=== PATIENT | female | born 1980 | race Caucasian/White ===

== ENCOUNTER → 2020-08-01 10:01 | Outpatient (CLI) | payer OTHER, SELFPAY ==
--- NOTE | ~2020-08-01 | MM_ITS ---
EXAMINATION: MM diagnostic sylvia BI w daniel HISTORY: Breast pain TECHNIQUE: Additional 3-D tomosynthesis images of the breasts were performed and synthetic 2-D images were generated. CAD analysis was submitted and interpreted. COMPARISON: Comparison to multiple prior studies sequentially, with oldest reviewed study dated 09/25. BREAST PARENCHYMAL COMPOSITION: The breasts are heterogenously dense, which may obscure small masses. FINDINGS: The breasts are stable. There are no suspicious masses, calcifications or architectural dis tortion in either breast to suggest malignancy. IMPRESSION: 1. No mammographic evidence for malignancy in either breast. 2. Routine yearly screening mammogram and regular clinical breast examination are recommended. BI-RADS Category 1: Negative Reviewed, dictated and finalized at location A. IMPRESSION: 1. No mammographic evidence for malignancy in either breast. 2. Routine yearly screening mammogram and regular clinical breast examination a re recommended. BI-RADS Category 1: Negative
== END ==
PROVIDERS: PCP Physician Assistant; Visit Provider Nurse Practitioner
DX: N64.4 Mastodynia (principal)
CPT/HCPCS: 77062; 77066; G0279

== ENCOUNTER → 2021-07-26 16:13 | Outpatient (CLI) | payer OTHER, SELFPAY ==
--- NOTE | ~2021-07-26 | MM_ITS ---
EXAMINATION: MM screening sylvia BI w daniel HISTORY: Screening TECHNIQUE: Craniocaudal and mediolateral oblique 3-D tomosynthesis images were obtained and synthetic 2-D images were generated. CAD analysis was submitted and interpreted. COMPARISON: Comparison to multiple prior studies sequentially, with oldest reviewed study dated 09/25. BREAST PARENCHYMAL COMPOSITION: The breasts are heterogeneously dense, which may obscure small masses . FINDINGS: There is no evidence of suspicious mass, calcification, or architectural distortion to sugg est malignancy in either breast. There has been no suspicious interval change. IMPRESSION: 1. No mammographic evidence of malignancy. 2. Recommend routine screening mammography in one year. BI-RADS Category 1: Negative Reviewed, dictated and finalized at location A.
== END ==
PROVIDERS: Visit Provider Nurse Practitioner
DX: Z12.31 Encounter for screening mammogram for malignant neoplasm of breast (principal)
CPT/HCPCS: 77063; 77067

== ENCOUNTER → 2021-08-13 15:18 | Outpatient (CLI) | payer OTHER, SELFPAY ==
--- NOTE | ~2021-08-13 | MR_ITS ---
EXAMINATION: MR knee RT wo con DATE: 08/13/2021 15:59 INDICATION: Right knee pain. TECHNIQUE: Magnetic resonance imaging (MRI) of the right knee was performed without intravenous contr ast. Sequences included axial PD-weighted FS FSE, coronal PD-weighted FSE and PD-weighted FS FSE, sag ittal PD-weighted FSE, and sagittal T2-weighted FS FSE. COMPARISON: None. FINDINGS: Medial compartment: Medial meniscus is normal. Medial compartment cartilage is normal. Lateral compartment: Lateral meniscus is normal. Lateral compartment cartilage is normal. Patellofemoral compartment: Patellar cartilage is normal. Trochlear cartilage is normal. Ligaments and tendons: The anterior and posterior cruciate ligaments are normal. There are changes of prior sprains of media l collateral ligament and fibular collateral ligament characterized by thickening and increased signa l intensity proximally. There is mild patellar tendinopathy. Fluid: There is no knee joint effusion. There is a small Walton's cyst. IMPRESSION: 1. Small Walton's cyst. Reviewed, dictated and finalized at location A. IMPRESSION: 1. Small Walton's cyst.
== END ==
PROVIDERS: PCP Physician Assistant; Visit Provider Orthopaedic Surgery
DX: M71.21 Synovial cyst of popliteal space [Baker], right knee (principal)
CPT/HCPCS: 73721

== ENCOUNTER → 2021-12-21 12:43 | Outpatient (CLI) | payer OTHER, SELFPAY ==
--- NOTE | ~2021-12-21 | MR_ITS ---
EXAMINATION: MR hip RT w con DATE: 12/21/2021 14:57 INDICATION: Right hip pain. TECHNIQUE: Magnetic resonance imaging (MRI) of the right hip was performed without intravenous contra st after intra-articular injection of contrast (MR arthrogram). Sequences included axial T1-weighted FSE of the pelvis, coronal and axial T2-weighted FS FSE of the pelvis, and coronal and axial T1-weigh walker FS FSE and T2-weighted FS FSE, sagittal T2-weighted FS FSE, and radial T1-weighted FS FSE of the right hip. COMPARISON: Pelvis and left hip radiograph 02/10/2018 FINDINGS: Bones/cartilage: Bone alignment is normal. No fracture. There is artifact from screws in the left ilium. There is decr eased right femoral head/neck offset anterolaterally, which may be seen with femoral acetabular impin gement. There is partial-thickness cartilage loss of lateral aspect of right acetabulum. Labrum: There is a tear of the right acetabular labrum. Fluid: The right hip joint is well distended by contrast. There is mild bilateral trochanteric bursitis. Soft tissues: There is mild tendinopathy of the hamstring origins bilaterally. The iliopsoas tendons are normal. Th e gluteus medius and gluteus minimus tendons are normal. IMPRESSION: 1. Mild right hip chondrosis. 2. Tear of right acetabular labrum. Reviewed, dictated and finalized at location A. GER ENTRY
--- NOTE | ~2021-12-21 | XR_ITS ---
EXAMINATION: XR fl inj hip RT for MR/CT EXAM DATE: 12/21/2021 13:59 INDICATION: Right hip pain. TECHNIQUE: This procedure was performed by Dr. Magdi Larson, radiologist. I discussed procedure inclu ding the risks, benefits and alternatives with the patient. Risks discussed included bleeding and inf ection. The patient understood the risks and agreed to proceed. A time-out was performed to verify the patient's name, date of , and procedure. The skin over lying the right hip joint was prepped and draped in usual sterile fashion. Anesthetic was administer ed with 3 milliliters 1% lidocaine subcutaneously. A 22 G needle was advanced under fluoroscopic berenice dance into the joint. A total of 10 mL of 1:200 of 529 mg/mL Multihance, 1:4 lidocaine, and 1:4 Omni paque 240 was instilled. The needle was removed and the entry site was cleaned and dressed. Ther e were no immediate complications. Pulsed dose reduction fluoroscopy was used with fluoroscopic time of 0.1 minus. The DAP for this procedure was 0.17 Gycm2. A total of 3 images obtained for the exam . The procedure was performed on 12/21/2021. FINDINGS: Real-time fluoroscopy demonstrates the needle and contrast in the right hip joint. IMPRESSION: Successful right hip joint injection. Reviewed, dictated and finalized at location A. ER FITTER APPRENTICE
== END ==
DX: S73.191A Other sprain of right hip, initial encounter (principal); X58.XXXA Exposure to other specified factors, initial encounter
CPT/HCPCS: 20610; 73722; 77002; A9577; Q9966

== ENCOUNTER 2024-01-28 11:15 | Outpatient (RCR) | payer OTHER, SELFPAY ==
--- NOTE | 2023-12-31 11:55 | OPREHPOC ---
Outpatient Therapy Plan of Care This is a Multidisciplinary Plan of Care that may contain components documented by all disciplines (PT, OT, and ST.) PT Problem 1 PT Problem #1 Knowledge Deficit PT Goal 1 Goal 1. Patient will perform independent HEP Target Visit 3 PT Problem 2 PT Problem #2 Pain PT Goal 1 Goal 1. No pain with pelvic exam Target Visit 6 PT Problem 3 PT Problem #3 Impaired Functional ADLs PT Goal 1 Goal 1. Patient will report no incontinence for 2 weeks Target Visit 6
--- NOTE | 2023-12-31 11:56 | PTOPEVAL1 ---
Assessment and note entered by Kary Singleton DPT Evaluation Information Assessment Status Evaluation Subjective Information Pt reports recent exacerbation of stress incontinence. Denies pelvic pain. Voids 8-10 times a day and usually once at night. Incontinence occurs a few times a week. Volume is typically a few drops at a time. Has had to change her clothes on occasion. Does not wear pads or liners. Can hold urge to void 20 minutes and does report a sense of urgency. BM daily but is very hard stool currently. States she has a history of constipation and recently had a colonoscopy, has tried Linsezz which helped but is currently unable to afford the co-pay. Denies pain with BM. Denies history of pelvic pain. States she has never been . 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 Patient goal: decrease incontinence Reported Pain Level Pain Score 0: Self Report Assessment PT Clinical Summary The patient is presenting to skilled therapy with a history of worsening stress incontinence. She also reports a history of constipation and pelvic pain on exam this visit. She presents with decreased pelvic floor muscle strength, decreased core strength, and increased pelvic floor muscle tone which are contributing to her pain and incontinence. She will benefit from therapy to address these impairments in order to reduce pain and incontinence. Plan of Care Interventions Hot Pack/Cold Pack,Manual Therapy,Neuro Re- education,Patient/Caregiver Education,Therapeutic Activities,Therapeutic Exercise PT Services Indicated Yes Treatment Frequency and 1 time a week for 6 visits Duration These treatments will address the objective and functional deficits as defined above. The patient will be advanced safely and appropriately in order for the patient to progress towards his/her prior level of function. Additional exercises will be introduced and as well as a comprehensive home exercise program upon discharge, if needed, ?to ensure carryover of functional gains achieved in the clinic. This treatment plan has been reviewed and agreement upon by the patient.
--- NOTE | 2024-02-03 13:43 | PTOPDC ---
Assessment and note entered by Kary Singleton, DPT Evaluation Information Assessment Status Discharge - Pt Not Present Subjective Information - Assessment PT Clinical Summary Patient is self discharging at this time due to insurance- states she has a high deductible plan and cannot afford current cost. She has been educated to continue HEP and call if things change in the future. Plan of Care PT Services Indicated No
== END 2024-02-03 13:57 | disposition home or self-care (01) ==
LOC: ANHGOSHPT 11:15
PROVIDERS: Visit Provider Nurse Practitioner
DX: R10.2 Pelvic and perineal pain (principal); N39.3 Stress incontinence (female) (male)
CPT/HCPCS: 97110; 97112; 97140; 97162; 97530

== ENCOUNTER 2024-02-25 16:19 | Outpatient (CLI) | payer OTHER, SELFPAY ==
--- NOTE | ~2024-02-25 | XR_ITS ---
XR lumbar spine 2-3V DATE: 02/25/2024 16:53 INDICATION: Twisting injury 3 months ago. Low back pain. TECHNIQUE: AP, lateral and coned lateral lumbosacral views COMPARISON: None FINDINGS: There are multiple threaded screws extending through the lateral aspect of the right iliac bone into the superior acetabular area. There is mild rotatory dextroscoliosis of the upper thoracic spine. No fracture or bone destruction or spondylolisthesis of the lumbar spine is evident. Lumbar and lumbo sacral interspaces are well preserved. The lumbar pedicles appear intact. The sacroiliac joints appea r normal. IMPRESSION: Screws extending through the right iliac bone into the superior right acetabulum Mild rotatory dextroscoliosis of the upper lumbar spine Reviewed, dictated and finalized at location B. IMPRESSION: Screws extending through the right iliac bone into the superior rig ht acetabulum Mild rotatory dextroscoliosis of the upper lumbar spine
== END 2024-02-25 16:20 ==
LOC: MICIMG 16:21
PROVIDERS: PCP Chiropractor; Visit Provider Chiropractor
DX: M54.50 Low back pain, unspecified (principal)
CPT/HCPCS: 72100

== ENCOUNTER 2024-04-28 14:47 | Outpatient (CLI) | payer OTHER, SELFPAY ==
--- NOTE | ~2024-04-28 | US_ITS ---
EXAMINATION: US pelvic complete w TV DATE: 04/28/2024 15:11 INDICATION: Pelvic pain Comparison:Ultrasound dated 02/16/2018 TECHNIQUE: Multiple transabdominal and endovaginal sonographic images of the pelvis performed. FINDINGS: The uterus measures 8.2 x 4.5 x 3.3 cm. The endometrial complex measures 7 mm. The right ovary measures 2.2 x 2.2 x 1.7 cm and the left ovary measures 2.4 x 2.3 x 2.2 cm. There is a septated left ovarian cyst measuring 2 cm. There are small follicles in each ovary. Normal doppler signal in both ovaries. There is free fluid in the pelvis. There are no abnormal masses seen on either side. IMPRESSION: 1. Septated left ovarian cyst measuring 2 cm. Reviewed, dictated and finalized at location B.
== END 2024-04-28 14:48 ==
PROVIDERS: PCP Physician Assistant; Visit Provider Nurse Practitioner
DX: N83.292 Other ovarian cyst, left side (principal)
CPT/HCPCS: 76830; 76856

== ENCOUNTER 2024-05-26 13:18 | Outpatient (CLI) | payer OTHER, SELFPAY ==
--- NOTE | ~2024-05-26 | US_ITS ---
US pelvic complete w TV Ordering provider: Vicky Benitez MD History: . f/u L OVARIAN CYST . Comparison: 04/28/2024 Technique: Transabdominal and endovaginal ultrasound of the pelvis (Doppler ultrasound interrogation techniques used as needed for this exam.) FINDINGS: CERVIX: Normal. UTERUS: Measures 8.3x 4.1x 4 cm in length which is within normal limits and is anteverted. No myomet rial masses. ENDOMETRIUM: Normal in thickness measuring 6 mm. CUL DE SAC: No free fluid. RIGHT OVARY: Normal in size measuring 2.6x 1.7x 1.5 cm. Normal echotexture. Doppler vascular flow pre sent. Right ovarian follicle is seen measuring 1.1 x 1 1.1 x 1.5 cm.. LEFT OVARY: Normal in size measuring 2x 2.2x 2.1 Normal echotexture. Doppler vascular flow present. Cyst is seen measuring 1.1 x 0.9 x 1.9 cm. ADNEXA: Normal. No mass. IMPRESSION: Cysts in both ovaries. Otherwise, normal pelvic ultrasound. Reviewed, dictated and finalized at location A.
== END 2024-05-26 13:19 ==
PROVIDERS: PCP Obstetrics & Gynecology Gynecology; Visit Provider Obstetrics & Gynecology Gynecology
DX: N83.202 Unspecified ovarian cyst, left side (principal)
CPT/HCPCS: 76830; 76856

== ENCOUNTER 2024-07-08 15:13 | Outpatient (CLI) | payer OTHER, SELFPAY ==
--- NOTE | ~2024-07-08 | US_ITS ---
EXAMINATION: US pelvic complete w TV DATE: 07/08/2024 15:39 INDICATION: Left ovarian cyst TECHNIQUE: Multiple transabdominal and endovaginal sonographic images of the pelvis were obtained. COMPARISON: 05/26/2024 FINDINGS: The uterus measures 8.6 x 3.8 x 3.5 cm. The endometrial complex measures 4 mm in thickness. The righ t ovary measures 3.5 x 3.5 x 2.9 cm. 3.0 x 2.9 x 2.6 cm anechoic right ovarian cyst. The left ovary i s not visualized. Vascular flow identified in the right ovary on color Doppler. There is no free flui d in the pelvis. IMPRESSION: 1. 3.0 cm right ovarian cyst. The left ovary is not visualized. Reviewed, dictated and finalized at location A.
== END 2024-07-08 15:14 ==
PROVIDERS: PCP Obstetrics & Gynecology Gynecology; Visit Provider Obstetrics & Gynecology Gynecology
DX: N83.201 Unspecified ovarian cyst, right side (principal)
CPT/HCPCS: 76830; 76856

== ENCOUNTER 2024-08-18 15:14 | Outpatient (CLI) | payer OTHER, SELFPAY ==
--- NOTE | ~2024-08-18 | US_ITS ---
EXAMINATION: US pelvic complete w TV INDICATION: Follow-up ovarian cyst. Comparison:No prior studies for comparison. TECHNIQUE: Multiple transabdominal and endovaginal sonographic images of the pelvis performed. FINDINGS: The uterus measures 9.1 x 5.5 x 3.6 cm. The endometrial complex measures 4 mm. The right ovary measures 1.9 x 1.7 x 1.9 cm and the left ovary measures 4.2 x 3 x 3.6 cm. There is a 3.5 x 2.7 x 3.1 cm left ovarian cyst which is simple. No septations. There is a 1.5 cm right ovarian follicle. There are small follicles in each ovary. Normal doppler signal in both ovaries. There is no free fluid in the pelvis. There are no abnormal masses seen on either side. IMPRESSION: 1. Simple bilateral ovarian cysts, largest in the left ovary measuring 3.5 cm. Reviewed, dictated and finalized at location B.
== END 2024-08-18 15:15 | disposition home or self-care (01) ==
LOC: GOSHIMG 15:18
PROVIDERS: PCP Obstetrics & Gynecology Gynecology; Visit Provider Obstetrics & Gynecology Gynecology
DX: N83.201 Unspecified ovarian cyst, right side (principal); N83.202 Unspecified ovarian cyst, left side
CPT/HCPCS: 76830; 76856

== ENCOUNTER 2024-12-10 13:44 | Outpatient (CLI) | payer OTHER, SELFPAY ==
--- NOTE | ~2024-12-10 | US_ITS ---
EXAMINATION: US pelvic complete w TV DATE: 12/10/2024 14:10 INDICATION: ABNORMAL UTERINE BLEEDING, PELVIC PAIN TECHNIQUE: Multiple transabdominal and endovaginal sonographic images of the pelvis were obtained. COMPARISON: None. FINDINGS: Uterus: 9.0 x 4.4 x 3.0 cm. Endometrial complex measures 4 mm. Right Ovary: 1.5 x 1.4 x 1.3 cm. Vascular flow is present. No adnexal mass. Left Ovary: 2.1 x 1.8 x 1.6 cm. Vascular flow is present. No adnexal mass. There is no free fluid in the pelvis. Irregularity and potential wall thickening in a partially diste nded urinary bladder. IMPRESSION: Cystitis versus artifact from incomplete urinary bladder distention, correlate with urinalysis. Other krueger normal pelvic sonogram findings. Reviewed, dictated and finalized at location K. CLERK IMPRESSION: Cystitis versus artifact from incomplete urinary bladder distention, correlate with urinalysis. Otherwise normal pelvic sonogram findings.
== END 2024-12-10 13:45 | disposition home or self-care (01) ==
LOC: GOSHIMG 13:45
PROVIDERS: PCP Nurse Practitioner; Visit Provider Nurse Practitioner
DX: N93.8 Other specified abnormal uterine and vaginal bleeding (principal); R10.2 Pelvic and perineal pain
CPT/HCPCS: 76830; 76856

== ENCOUNTER 2025-01-11 08:28 | Outpatient (CLI) | payer OTHER, SELFPAY ==
--- NOTE | ~2025-01-11 | CT_ITS ---
EXAMINATION: CT abdomen pelvis w con DATE: 01/11/2025 08:56 INDICATION: Left lower quadrant abdominal pain. TECHNIQUE: Computed tomography (CT) of the abdomen and pelvis was performed with 100 mL Omnipaque 350 intravenous contrast. Automated exposure control and iterative reconstruction technique were employe d. The dose-length product was 548.11 mGy-cm. COMPARISON: CT abdomen and pelvis 12/02/2009 FINDINGS: The visualized portions of the lung bases demonstrate mild atelectasis. No pleural effusion . The heart size is normal. No pericardial effusion. There is a chronic 11 mm hypodense mass in right hepatic lobe, likely benign. The gallbladder, spleen, pancreas, adrenal glands, and right kidney are normal. There is an 11 mm cyst in left kidney. There is a 3.7 cm cyst in left ovary. There are no di lated loops of bowel. The appendix is normal. There is a moderate volume of stool in the colon. There are no pathologically enlarged lymph nodes. There is no free intraperitoneal fluid. There are screws in the iliac bones. There is mild thoracic and lumbar spondylosis. IMPRESSION: 1. 3.7 cm cyst in left ovary, likely a follicular cyst. Reviewed, dictated and finalized at location A. Y LEVEL STAFF ACCOUNTANT
== END 2025-01-11 08:29 | disposition home or self-care (01) ==
LOC: MICIMG 08:29
PROVIDERS: PCP Physician Assistant; Visit Provider Physician Assistant
DX: R10.32 Left lower quadrant pain (principal); N83.202 Unspecified ovarian cyst, left side
CPT/HCPCS: 74177; Q9967

== ENCOUNTER 2025-02-23 15:12 | Outpatient (CLI) | payer OTHER, SELFPAY ==
--- NOTE | ~2025-02-23 | US_ITS ---
EXAMINATION: US pelvic complete w TV INDICATION: Ovarian cyst seen on prior CT. Comparison:CT abdomen dated 01/11/2025 and ultrasound dated 12/10/2024 TECHNIQUE: Multiple transabdominal and endovaginal sonographic images of the pelvis performed. FINDINGS: The uterus measures 8 x 4.2 x 3.5 cm. The endometrial complex measures 2 mm. The right ovary is not visualized. Left ovary measures 1.7 x 1.4 x 1.6 cm. No left ovarian cyst is id entified on current study. There is no free fluid in the pelvis. There are no abnormal masses seen on either side. IMPRESSION: 1. Unremarkable pelvic ultrasound. Interval resolution of left ovarian cyst. Reviewed, dictated and finalized at location A.
== END 2025-02-23 15:13 | disposition home or self-care (01) ==
LOC: GOSHIMG 15:12
PROVIDERS: PCP Obstetrics & Gynecology Gynecology; Visit Provider Obstetrics & Gynecology Gynecology
DX: O34.80 Maternal care for other abnormalities of pelvic organs, unspecified trimester (principal); Z3A.00 Weeks of gestation of pregnancy not specified
CPT/HCPCS: 76830; 76856

== ENCOUNTER 2025-04-11 14:45 | Outpatient (CLI) | payer OTHER, SELFPAY ==
--- NOTE | ~2025-04-11 | US_ITS ---
EXAM: Focused ultrasound examination of the soft tissues of the neck HISTORY: localized swelling mass in neck TECHNIQUE: Sonographic evaluation of the soft tissues of the neck were performed assessing grayscale appearance and color Doppler flow. COMPARISON: None. FINDINGS: Sonographic evaluation of the soft tissues of the neck demonstrate benign fibrofatty and fibromuscula r elements without a cystic or solid lesion of concern. IMPRESSION: No sonographic abnormality is appreciated on focused ultrasound examination. Reviewed, dictated and finalized at location A.
== END 2025-04-11 14:46 | disposition home or self-care (01) ==
LOC: GOSHIMG 14:46
PROVIDERS: PCP Otolaryngology; Visit Provider Physician Assistant
DX: R22.1 Localized swelling, mass and lump, neck (principal)
CPT/HCPCS: 76536

== ENCOUNTER 2025-04-22 13:11 | Outpatient (CLI) | payer OTHER, SELFPAY ==
--- NOTE | ~2025-04-22 | US_ITS ---
US thyroid INDICATION: Hoarseness. Dysphonia. TECHNIQUE: Real-time sonographic images of the thyroid gland were obtained. COMPARISON: Ultrasound dated 04/11/2025 FINDINGS: The right thyroid lobe measures 4.6 x 1.4 x 0.9 cm. The left thyroid lobe measures 4.9 x 1 .2 x 0.8 cm. There is normal echotexture and echogenicity throughout the thyroid gland. In the right thyroid gland there is an round 4 mm hypoechoic solid mass which is taller than wide, smooth margins and no echogenic foci, TR 5. Normal vascular flow is present. IMPRESSION: 1. Small 4 mm right thyroid mass, TR 5. This does not meet sonographic criteria for biopsy. Otherwis e, unremarkable thyroid ultrasound. Reviewed, dictated and finalized at location A. IMPRESSION: 1. Small 4 mm right thyroid mass, TR 5. This does not meet sonographic criteri a for biopsy. Otherwise, unremarkable thyroid ultrasound.
== END 2025-04-22 13:12 | disposition home or self-care (01) ==
LOC: GOSHIMG 13:12
PROVIDERS: PCP Physician Assistant; Visit Provider Physician Assistant
DX: R49.0 Dysphonia (principal)
CPT/HCPCS: 76536

== ENCOUNTER 2025-06-17 12:45 | Outpatient (RCR) | payer BC, SELFPAY ==
--- NOTE | 2025-04-29 16:24 | OPREHPOC ---
Outpatient Therapy Plan of Care This is a Multidisciplinary Plan of Care that may contain components documented by all disciplines (PT, OT, and ST.) ST Problem 1 ST Problem #[address] Goal 1 Goal / Goal Update The patient will participate in home programming to improve carry over/generalization of skills to the home environment. Target Visit [address] Problem #[address] Goal 1 Goal / Goal Update Voice: 1. The patient will learn techniques to improve vocal hygiene and eliminate abusive vocal behavior . 2. The patient will be provided written HEP with neck/shoulder exercises to increase muscle awareness and relaxation of laryngeal tension. 3. The patient will learn diaphragmatic breathing techniques and methods of easy airflow release during speech 80% accuracy minimal cues. 4.The patient will engage in exercises to promote resonance and release of laryngeal tension 80% accuracy minimal cues. 5. The patient will improve self monitoring of vocal quality, onset of phonation, pitch, volume, and laryngeal tension during conversation voice use 80% accuracy minimal cues. Target Visit 10
--- NOTE | 2025-04-29 16:25 | STOPEVAL1 ---
Assessment and note entered by Paola Savage, ORACLE APPLICATION ARCHITECT Evaluation Information Assessment Status Evaluation Diagnosis R49.0 ICD-10 Condition Codes (ST) Dysphonia R49.0 Onset August 2024 Subjective Information The patient reports noticing a change in her vocal quality in August of 2024 following stressful changes occurring at her employment. She has since been evaluated by a ENT with a new diagnosis of muscle tension dysphonia. The patient reports she does extensive communication on the phone at her employment and often uses a more intentional and louder volume when speaking on the phone. She also indicated that since changes over the past week at her job she has reduced some of her stress and that she is seeking outside counseling to deal with her personal stress. Reported Pain Level Pain Score 0: Self Report These treatments will address the objective and functional deficits as defined above. The patient will be advanced safely and appropriately in order for the patient to progress towards his/her prior level of function. Additional exercises will be introduced and as well as a comprehensive home exercise program upon discharge, if needed, ?to ensure carryover of functional gains achieved in the clinic. This treatment plan has been reviewed and agreement upon by the patient.
--- NOTE | 2025-06-17 13:32 | STOPEVAL1 ---
Assessment and note entered by Paola Savage JEWEL SAWYER Evaluation Information Assessment Status Discharge Reported Pain Level Pain Score 0: Self Report Assessment ST Clinical Summary The patient is a 44 year old female that was evaluated due to an onset of dysphonia impacting everyday communication and her ability to complete daily job functions. The patient has been seen for 8 treatments to address resonance, phonation, respiration, and loudness. Treatment focused on vocal hygiene techniques, home exercises, diaphragmatic breathing, easy onset of speech, reduced loudness and focusing on speech production away from laryngeal strain. The patient has been able to apply techniques and is able to maintain optimal voicing at 70 decibels without noted strain. She can demonstrate techniques, cervical relaxation techniques, and diaphragmatic breathing independent. She has been provided a HEP to continue upon discharge to maintain optimal voicing. Plan of Care Interventions Treatment of Voice ST Services Indicated No Treatment Frequency and Discharge this date. Duration These treatments will address the objective and functional deficits as defined above. The patient will be advanced safely and appropriately in order for the patient to progress towards his/her prior level of function. Additional exercises will be introduced and as well as a comprehensive home exercise program upon discharge, if needed, ?to ensure carryover of functional gains achieved in the clinic. This treatment plan has been reviewed and agreement upon by the patient.
== END 2025-06-17 15:32 | disposition home or self-care (01) ==
LOC: ANHST 12:45
PROVIDERS: PCP Physician Assistant
DX: R49.0 Dysphonia (principal)
CPT/HCPCS: 92507; 92524